=== PATIENT | male | born 1995 | race Caucasian/White ===

== ENCOUNTER 2018-01-12 02:12 | Emergency (ER) | payer SELFPAY ==
[2018-01-12] MEDS: KETOROLAC 60 MG INJ IM (04:13)
== END 2018-01-12 04:30 | disposition home or self-care (01) ==
LOC: FTE 02:12
DX: S90.822A Blister (nonthermal), left foot, initial encounter (principal); M79.671 Pain in right foot; X58.XXXA Exposure to other specified factors, initial encounter; Y92.9 Unspecified place or not applicable
CPT/HCPCS: 96372; 99284-25